=== PATIENT | male | born 1975 | race Caucasian/White ===

== ENCOUNTER 2019-07-22 14:57 | Emergency (ER) | payer MEDICAID, OTHER ==
[2019-07-22] MEDS ORDERED: IPRATROPIUM/ALBUTEROL 3 ML NEB INH STA (15:35)
--- NOTE | 2019-07-22 15:38 | ED Physician Documentation ---
History of Present Illness - Stated complaint Stated Complaint: FLU SX - Chief complaint Chief Complaint: Resp - History obtained from History obtained from: Patient - History of Present Illness Timing: How many weeks ago (2) Pain level max: 0 Pain level now: 0 - Additonal information Additional information: 43-year-old male states that he has had coughing and difficulty breathing for the past 2 weeks. Had a fever 2 weeks ago. Nothing makes it better or worse. He does occasionally use heroin. He smokes approximately a pack per day. No chest pain. No abdominal pain. He states he has had a decreased appetite as well. Review of Systems Constitutional: denies: Chills, Myalgias Nose: reports: Rhinorrhea / runny nose, Congestion Throat: reports: Sore throat Respiratory: reports: Cough GI: denies: Abdominal Pain, Vomiting, Diarrhea Skin: denies: Rash Musculoskeletal: denies: Neck pain, Back pain Neurologic: denies: Headache PD PAST MEDICAL HISTORY - Past Medical History Past Medical History: No - Past Surgical History Past Surgical History: No - Allergies Allergies/Adverse Reactions: Allergies Allergy/AdvReac Type Severity Reaction Status Date / Time Penicillins Allergy Rash Verified 07/22/19 15:00 - Living Situation Living Arrangement: reports: At home - Social History Does the pt smoke?: Yes Smoking Status: Current every day smoker Does the pt drink ETOH?: Yes Does the pt have substance abuse?: Yes Substance Use and Type: Heroin PD ED PE NORMAL - Vitals Vital signs reviewed: Yes - General General: Alert and oriented X 3, No acute distress, Other (thin male) - HEENT HEENT: PERRL, Moist mucous membranes, Other (Erythematous posterior oropharyngeal exam) - Neck Neck: Supple, no meningeal sign - Cardiac Cardiac: RRR, Strong equal pulses - Respiratory Respiratory: No respiratory distress, Clear bilaterally - Abdomen Abdomen: Soft, Non tender, Non distended - Derm Derm: Warm and dry, No rash - Neuro Neuro: Alert and oriented X 3 - Psych Psych: Normal mood, Normal affect Results - Vitals Vitals: Vital Signs - 24 hr 07/22/19 07/22/19 07/22/19 15:00 16:00 18:27 Temperature 36.7 C Heart Rate 109 H 87 92 Respiratory 14 12 18 Rate Blood Pressure 119/68 125/101 H O2 Saturation 92 96 Oxygen O2 Source Room air - Labs Labs: Laboratory Tests 07/22/19 07/22/19 07/22/19 15:34 15:34 16:39 WBC 17.7 H RBC 4.37 L Hgb 13.3 L Hct 38.3 L MCV 87.6 MCH 30.4 MCHC 34.7 RDW 14.6 Plt Count 543 H MPV 10.3 Neut # (Auto) Not Reportable Lymph # (Auto) Not Reportable [place] # (Auto) Not Reportable Eos # (Auto) Not Reportable Baso # (Auto) Not Reportable Absolute Nucleated RBC Not Reportable Total Counted 100 Band Neuts % (Manual) 4 Abnorm Lymph % (Manual) 0 Nucleated RBC % Not Reportable Neutrophils # (Manual) 15.6 H Lymphocytes # (Manual) 1.8 Monocytes # (Manual) 0.4 Eosinophils # (Manual) 0.0 Basophils # (Manual) 0.0 Differential Comment MANUAL DIFFERENTIAL Manual Slide Review Indicated WBC Morphology TOXIC GRANULATION Platelet Estimate INCREASED (>450,000) Platelet Morphology NORMAL APPEARANCE RBC Morph Micro Appear NORMAL APPEARANCE Sodium Potassium Chloride Carbon Dioxide Anion Gap BUN Creatinine Estimated GFR (MDRD) Glucose Lactic Acid Calcium Total Bilirubin AST ALT Alkaline Phosphatase Total Protein Albumin Globulin Albumin/Globulin Ratio Lipase Urine Color Urine Clarity Urine pH Ur Specific [place] Urine Protein Urine Glucose (UA) Urine Ketones Urine Occult Blood Urine Nitrite Urine Bilirubin Urine Urobilinogen Ur Leukocyte Esterase Ur Microscopic Review Urine Culture Comments Urine Opiates Screen Ur Oxycodone Screen Urine Methadone Screen Ur Propoxyphene Screen Ur Barbiturates Screen Ur Tricyclics Screen Ur Phencyclidine Scrn Ur Amphetamine Screen U Methamphetamines Scrn U Benzodiazepines Scrn Urine Cocaine Screen U Cannabinoids Screen Influenza A (Rapid) Negative Influenza B (Rapid) Negative Group A Strep Rapid Negative 07/22/19 07/22/19 07/22/19 16:39 16:39 18:11 WBC RBC Hgb Hct MCV MCH MCHC RDW Plt Count MPV Neut # (Auto) Lymph # (Auto) [place] # (Auto) Eos # (Auto) Baso # (Auto) Absolute Nucleated RBC Total Counted Band Neuts % (Manual) Abnorm Lymph % (Manual) Nucleated RBC % Neutrophils # (Manual) Lymphocytes # (Manual) Monocytes # (Manual) Eosinophils # (Manual) Basophils # (Manual) Differential Comment Manual Slide Review WBC Morphology Platelet Estimate Platelet Morphology RBC Morph Micro Appear Sodium 125 L Potassium 4.4 Chloride 86 L Carbon Dioxide 26 Anion Gap 13.0 BUN 18 Creatinine 0.7 Estimated GFR (MDRD) 124 Glucose 131 H Lactic Acid 1.5 Calcium 8.1 L Total Bilirubin 1.8 H AST 84 H ALT 74 H Alkaline Phosphatase 76 Total Protein 7.6 Albumin 2.6 L Globulin 5.0 H Albumin/Globulin Ratio 0.5 L Lipase 19 L Urine Color YELLOW Urine Clarity CLEAR Urine pH 7.0 Ur Specific [place] <=1.005 Urine Protein NEGATIVE Urine Glucose (UA) NEGATIVE Urine Ketones NEGATIVE Urine Occult Blood NEGATIVE Urine Nitrite NEGATIVE Urine Bilirubin NEGATIVE Urine Urobilinogen 0.2 (NORMAL) Ur Leukocyte Esterase NEGATIVE Ur Microscopic Review NOT INDICATED Urine Culture Comments NOT INDICATED Urine Opiates Screen POSITIVE H Ur Oxycodone Screen NEGATIVE Urine Methadone Screen NEGATIVE Ur Propoxyphene Screen NEGATIVE Ur Barbiturates Screen NEGATIVE Ur Tricyclics Screen NEGATIVE Ur Phencyclidine Scrn NEGATIVE Ur Amphetamine Screen NEGATIVE U Methamphetamines Scrn NEGATIVE U Benzodiazepines Scrn NEGATIVE Urine Cocaine Screen NEGATIVE U Cannabinoids Screen NEGATIVE Influenza A (Rapid) Influenza B (Rapid) Group A Strep Rapid - Rads (name of study) cxr Radiology: Prelim report reviewed, EMP read contemporaneously, See rad report (1. Hyperinflated lungs consistent with COPD. 2. Left infrahilar mass-like density measuring 3.5 cm craniocaudal with adjacent atelectasis. Question aspergillosis, other infection or malignancy. 3. Extensive right mid to lower lung airspace disease. 4. Potential right pleural effusion. 5. Recommend contrast enhanced chest CT to further assess. ) chest CT Radiology: Prelim report reviewed, EMP read contemporaneously, See rad report (1. Multifocal consolidation in the right lower lobe, right middle lobe and left upper lobe. Diffuse bronchial wall thickening with mucus plugging most pronounced in the right lower lobe and right middle lobe with tree-in-bud opacities in the left lower lobe and left lingula. Mediastinal and right hilar lymphadenopathy. Findings suggest multifocal bronchopneumonia. Recommend pulmonology consultation. 2. Background of mild emphysema. 3. There is a 2 x 3 cm low-attenuation nodule within the left thyroid gland. Recommend nonemergent thyroid ultrasound for further evaluation. 4. Absence of subcutaneous fat consistent with cachexia. 5. Splenomegaly with small splenic and gastric varices. 6. Thickening of the gastric antrum may be secondary to underdistention versus antral gastritis. ) PD MEDICAL DECISION MAKING - ED course Complexity details: reviewed results, re-evaluated patient, considered differential, d/w patient ED course: 43-year-old male with diffuse bronchopneumonia, multifocal consolidation. Significant mucus plugging with tree-in-bud opacities. Given IV Levaquin. Given IV fluids for the hyponatremia and dehydration. Blood cultures were drawn. We do not have pulmonary to consult in this hospital, contacted [facility] for potential transfer. Dr. Katie Rowe graciously accepts in transfer at 2019. COBRA forms completed. Patient will be transferred to [facility]. This document was made in part using voice recognition software. While efforts are made to proofread this document, sound alike and grammatical errors may occur. Departure - Departure Disposition: 02 Transfer Acute Care Hosp Clinical Impression: Bronchopneumonia, Hyponatremia Condition: Stable
[2019-07-22 15:59] LABS: RAPID STREP SCREEN Negative (Negative)
--- NOTE | 2019-07-22 16:19 | XRAY Report ---
Reason: cough Procedure Date: 07/22/2019 Accession Number: [id number] / [id number] Procedure: XR - Chest 2 View X-Ray CPT Code: 66421 Final Report FULL RESULT: EXAM: CHEST RADIOGRAPHY EXAM DATE: 07/22/2019 03:55 PM. CLINICAL HISTORY: Cough. Moved into old house a year ago and started coughing. Current smoker. COMPARISON: None. TECHNIQUE: 2 views. FINDINGS: Lungs/Pleura: Hyperinflated lungs with increased AP dimension on the lateral film. Left infrahilar masslike density measuring 3.5 cm craniocaudal with adjacent atelectasis. Extensive right mid to lower lung airspace disease. Potential right pleural effusion. Mediastinum: Heart and mediastinal contours are unremarkable. Other: None. IMPRESSION: 1. Hyperinflated lungs consistent with COPD. 2. Left infrahilar mass-like density measuring 3.5 cm craniocaudal with adjacent atelectasis. Question aspergillosis, other infection or malignancy. 3. Extensive right mid to lower lung airspace disease. 4. Potential right pleural effusion. 5. Recommend contrast enhanced chest CT to further assess. RADIA The call report notification system was initiated by Dr. Kashmir Linares at 04:10 PM on 07/22/2019.
[2019-07-22] MEDS ORDERED: IOVERSOL 320 100 ML VIAL IVP ONE ×2 (16:27→17:34)
[2019-07-22 16:49] LABS: BASOPHILS % (AUTO) 0.6 %; EOSINOPHILS % (AUTO) 0.5 %; HGB - HEMOGLOBIN 13.3 g/dL (14.0-18.0); LYMPHOCYTES % (AUTO) 8.4 %; MEAN CORPUSCULAR HEMOGLOBIN 30.4 pg (27.0-31.0); MEAN CORPUSCULAR HGB CONC 34.7 g/dL (32.0-36.0); MEAN CORPUSCULAR VOLUME 87.6 fL (80.0-94.0); MEAN PLATELET VOLUME 10.3 fL (7.4-11.4); MONOCYTES % (AUTO) 8.3 %; NEUTROPHILS % (AUTO) 80.7 %; PLT - PLATELET COUNT 543 10^3/uL (130-450); RED BLOOD COUNT 4.37 10^6/uL (4.70-6.10); RED CELL DISTRIBUTION WIDTH 14.6 % (12.0-15.0); WHITE BLOOD COUNT 17.7 x10^3/uL (4.8-10.8)
[2019-07-22 16:56] LABS: ABNORMAL LYMPHS % (MANUAL) 0 %
[2019-07-22 17:02] LABS: ALBUMIN 2.6 g/dL (3.2-5.5); ALBUMIN/GLOBULIN RATIO 0.5 (1.0-2.2); BILIRUBIN,TOTAL 1.8 mg/dL (0.2-1.0); CALCIUM 8.1 mg/dL (8.5-10.3); CREATININE 0.7 mg/dL (0.6-1.2); TOTAL PROTEIN 7.6 g/dL (6.7-8.2)
[2019-07-22 17:11] LABS: BAND NEUTROPHILS % (MANUAL) 4 %; LYMPHOCYTES # (MANUAL) 1.8 10^3/uL (1.5-3.5); LYMPHOCYTES % (MANUAL) 10 %; MONOCYTES # (MANUAL) 0.4 10^3/uL (0.0-1.0); PLATELET ESTIMATE, MANUAL INCREASED (>450,000) (NORMAL); PLATELET MORPHOLOGY NORMAL APPEARANCE (NORMAL); RBC MORPHOLOGY (MULTIPLE) NORMAL APPEARANCE (NORMAL)
[2019-07-22 17:12] LABS: DIFFERENTIAL COMMENT MANUAL DIFFERENTIAL
[2019-07-22] MEDS ORDERED: SODIUM CHLORIDE 0.9% 1,000 ML IV ONE ×2 (17:26)
--- NOTE | 2019-07-22 18:06 | CT Report ---
Reason: cough, possible mass Procedure Date: 07/22/2019 Accession Number: [id number] / [id number] Procedure: CT - CHEST W CPT Code: Final Report FULL RESULT: EXAM: CT CHEST EXAM DATE: 07/22/2019 05:31 PM. CLINICAL HISTORY: Cough, possible mass. COMPARISONS: CHEST 2 VIEW 07/22/2019 3:45 PM. TECHNIQUE: Routine helical CT imaging was performed through the chest. IV contrast: None. Reconstructions: Coronal and sagittal. In accordance with CT protocol optimization, one or more of the following dose reduction techniques were utilized for this exam: automated exposure control, adjustment of mA and/or KV based on patient size, or use of iterative reconstructive technique. FINDINGS: Imaged neck: There is a 2 x 3 cm low-attenuation nodule within the left thyroid gland. Central airways: Diffuse bronchial wall thickening with mucus plugging most pronounced in the right lower lobe and right middle lobe with tree-in-bud opacities in the left lower lobe and left lingula. Lung parenchyma: --Mild centrilobular emphysema. --Multifocal consolidation in the right lower lobe, right middle lobe and left upper lobe. There are also areas of groundglass opacity in the more apical portions of these lobes. Pleural effusion: None Pneumothorax: None Heart: Unremarkable Aorta: Unremarkable Pulmonary arteries: Unremarkable Adenopathy: Mediastinal and right hilar lymphadenopathy. Imaged abdomen: Contracted gallbladder. Splenomegaly. There also appeared to be small splenic and gastric varices. Thickening of the gastric antrum may be secondary to underdistention versus antral gastritis. Sidewalls: Absence of subcutaneous fat consistent with cachexia. Bones: No suspicious osseous lesions. IMPRESSION: 1. Multifocal consolidation in the right lower lobe, right middle lobe and left upper lobe. Diffuse bronchial wall thickening with mucus plugging most pronounced in the right lower lobe and right middle lobe with tree-in-bud opacities in the left lower lobe and left lingula. Mediastinal and right hilar lymphadenopathy. Findings suggest multifocal bronchopneumonia. Recommend Pulmonology consultation. 2. Background of mild emphysema. 3. There is a 2 x 3 cm low-attenuation nodule within the left thyroid gland. Recommend nonemergent thyroid ultrasound for further evaluation. 4. Absence of subcutaneous fat consistent with cachexia. 5. Splenomegaly with small splenic and gastric varices. 6. Thickening of the gastric antrum may be secondary to underdistention versus antral gastritis. RADIA
[2019-07-22] MEDS ORDERED: levoFLOXacin 750 MG/150 ML 750 MG/150 ML BAG IV ONE (18:15)
[2019-07-22 18:22] LABS: MUDS CUTOFF CONCENTRATIONS CUTOFF CONC BELOW:
[2019-07-22 18:28] LABS: BILIRUBIN,URINE NEGATIVE (NEGATIVE); GLUCOSE, URINE (UA) NEGATIVE (NEGATIVE); KETONES,URINE (UA) NEGATIVE (NEGATIVE); LEUKOCYTE ESTERASE, URINE NEGATIVE (NEGATIVE); NITRITE,URINE NEGATIVE (NEGATIVE); OCCULT BLOOD,URINE NEGATIVE (NEGATIVE); PROTEIN,URINE NEGATIVE (NEGATIVE); UROBILINOGEN,URINE 0.2 (NORMAL) E.U./dL (NORMAL)
[2019-07-22 18:30] LABS: CLARITY,URINE CLEAR (CLEAR)
[2019-07-22 18:42] LABS: AMPHETAMINE SCREEN,URINE NEGATIVE (NEGATIVE); BENZODIAZEPINES SCREEN, URINE NEGATIVE (NEGATIVE); COCAINE SCREEN URINE NEGATIVE (NEGATIVE); METHADONE SCREEN, URINE NEGATIVE (NEGATIVE); METHAMPHETAMINES SCREEN, URINE NEGATIVE (NEGATIVE); OPIATE SCREEN, URINE POSITIVE (NEGATIVE); OXYCODONE SCREEN, URINE NEGATIVE (NEGATIVE); PROPOXYPHENE SCREEN, URINE NEGATIVE (NEGATIVE); TRICYCLIC ANTIDEPRESSANT,URINE NEGATIVE (NEGATIVE)
[2019-07-22 22:07] VITALS: BP 103/62
[2019-07-23 11:33] LABS: HIV AG/AB 4TH GEN NON-REACTIVE (NON-REACTIVE)
== END 2019-07-22 22:15 | disposition short-term general hospital (02) ==
LOC: ED 14:57
DX: J18.0 Bronchopneumonia, unspecified organism (principal); E86.0 Dehydration; E87.1 Hypo-osmolality and hyponatremia; E04.1 Nontoxic single thyroid nodule; R16.1 Splenomegaly, not elsewhere classified; F17.200 Nicotine dependence, unspecified, uncomplicated
CPT/HCPCS: 36415; 71046; 71260; 80053; 80306; 81003; 83605; 83690; 85025; 87040; 87070; 87275; 87276; 87389; 87430; 94640; 96361; 96365; 96366; 99284; 99285; Q9967; 81001; 87086

== ENCOUNTER 2019-07-22 22:10 | Outpatient (CLI) | payer MEDICAID | END 2019-07-22 22:11 | disposition short-term general hospital (02) | LOC: EMS 22:10 | PROVIDERS: ATTEND Surgery | DX: J18.0 Bronchopneumonia, unspecified organism (principal); E87.1 Hypo-osmolality and hyponatremia | CPT/HCPCS: A0425; A0426 ==

== ENCOUNTER 2022-06-01 11:03 | Emergency (ER) | payer MEDICAID ==
--- NOTE | 2022-06-01 14:19 | ED Physician Documentation ---
History of Present Illness - Stated complaint Stated Complaint: RT LEG WEAKNESS - Chief complaint Chief Complaint: General - Additonal information Additional information: 46-year-old male presents to the emergency department for evaluation of acute right groin pain that began 1 week ago. This gentleman reports that he developed sudden midline back pain And shortly thereafter he had radiation of pain to his right groin. The back pain has abated but he has had persistent pain in the groin limiting his ability to walk and move. Patient does have a history of daily injection drug use. He has chronic appearing ulcerations on both his forearms that he reports are the site where he injects drugs. He has had no fevers. No nausea or vomiting. He denies any saddle anesthesia. No chest pain or shortness of air. History is obtained from the patient. He appears chronically disheveled though he reports he has stable housing Review of Systems Constitutional: denies: Fever, Chills Skin: reports: Lesions Musculoskeletal: reports: Back pain Neurologic: reports: Reviewed and negative Psychiatric: reports: Reviewed and negative PD PAST MEDICAL HISTORY - Past Surgical History Past Surgical History: No - Present Medications Home Medications: Ambulatory Orders Medication Instructions Recorded Confirmed Clindamycin [Cleocin] 450 mg PO TID 10 Days #90 cap 06/01/22 - Allergies Allergies/Adverse Reactions: Allergies Allergy/AdvReac Type Severity Reaction Status Date / Time Penicillins Allergy Rash Verified 06/01/22 11:24 - Social History Does the pt smoke?: Yes Smoking Status: Current every day smoker Does the pt drink ETOH?: Yes Does the pt have substance abuse?: Yes PD ED PE EXPANDED - General General: Alert, Disheveled, poorly kept - Cardiac Cardiac: Regular Rate, Radial strong equal, Pedal strong equal, Cap refill < 2 sec - Respiratory Respiratory: Clear to ausultation thania. No: Distress, Labored - Abdomen Abdomen: Normal Bowel sounds. No: Tender to palpation - Male Male : Normal lie/cremastaric, Other (Pain with internal and external rotation. No swelling or deformity. No lymphadenopathy.) - Back Back: Other (No tenderness elicited with palpation of the thoracic or lumbar spine. No crepitus or deformity.) - Derm Derm: Other (Chronic appearing ulcerations on bilateral upper extremities with exposed subcutaneous tissue. There is some hypertrophic scarring around the ulcerations they appear chronic.) - Neuro Neuro: Alert and Oriented X 3, CNII-XII intact - GCS Eye Opening: Spontaneous Motor: Obeys Commands Verbal: Oriented Total: 15 Results - Vitals Vitals: Vital Signs - 24 hr 06/01/22 06/01/22 06/01/22 11:19 11:24 13:24 Temperature 37.7 C 37.7 C Heart Rate 93 93 90 Respiratory 14 14 14 Rate Blood Pressure 117/63 117/63 116/60 O2 Saturation 95 95 96 06/01/22 06/01/22 06/01/22 15:00 17:00 19:00 Temperature Heart Rate 80 86 88 Respiratory 16 17 16 Rate Blood Pressure 120/76 125/80 135/89 H O2 Saturation 98 98 94 Oxygen O2 Source Room air - Labs Labs: Laboratory Tests 06/01/22 06/01/22 06/01/22 14:00 14:05 14:05 WBC 24.2 H RBC 4.33 L Hgb 11.8 L Hct 34.5 L MCV 79.7 L MCH 27.3 MCHC 34.2 RDW 14.6 Plt Count 698 H MPV 9.2 Neut # (Auto) 20.3 H Lymph # (Auto) 1.5 [place] # (Auto) 2.0 H Eos # (Auto) 0.1 Baso # (Auto) 0.1 Absolute Nucleated RBC 0.00 Nucleated RBC % 0.0 Manual Slide Review Indicated WBC Morphology 2+ TOXIC GRANULATION Sodium 124 L Potassium 4.2 Chloride 89 L Carbon Dioxide 25 Anion Gap 10.0 BUN 18 Creatinine 0.5 L Estimated GFR (MDRD) 181 Glucose 114 H Lactic Acid 0.7 Calcium 8.1 L Total Bilirubin 0.5 AST 24 ALT 26 Alkaline Phosphatase 96 Total Creatine Kinase C-Reactive Protein Total Protein 7.1 Albumin 2.2 L Globulin 4.9 H Albumin/Globulin Ratio 0.4 L Procalcitonin Urine Color Urine Clarity Urine pH Ur Specific [place] Urine Protein Urine Glucose (UA) Urine Ketones Urine Occult Blood Urine Nitrite Urine Bilirubin Urine Urobilinogen Ur Leukocyte Esterase Urine RBC Urine WBC Ur Squamous Epith Cells Urine Bacteria Urine Mucus Ur Microscopic Review Urine Culture Comments Urine Opiates Screen Ur Oxycodone Screen Urine Methadone Screen Ur Propoxyphene Screen Ur Barbiturates Screen Ur Tricyclics Screen Ur Phencyclidine Scrn Ur Amphetamine Screen U Methamphetamines Scrn U Benzodiazepines Scrn Urine Cocaine Screen U Cannabinoids Screen 06/01/22 06/01/22 06/01/22 14:05 14:05 14:05 WBC RBC Hgb Hct MCV MCH MCHC RDW Plt Count MPV Neut # (Auto) Lymph # (Auto) [place] # (Auto) Eos # (Auto) Baso # (Auto) Absolute Nucleated RBC Nucleated RBC % Manual Slide Review WBC Morphology Sodium Potassium Chloride Carbon Dioxide Anion Gap BUN Creatinine Estimated GFR (MDRD) Glucose Lactic Acid Calcium Total Bilirubin AST ALT Alkaline Phosphatase Total Creatine Kinase 17 L C-Reactive Protein 24.4 H Total Protein Albumin Globulin Albumin/Globulin Ratio Procalcitonin 1.43 H Urine Color Urine Clarity Urine pH Ur Specific [place] Urine Protein Urine Glucose (UA) Urine Ketones Urine Occult Blood Urine Nitrite Urine Bilirubin Urine Urobilinogen Ur Leukocyte Esterase Urine RBC Urine WBC Ur Squamous Epith Cells Urine Bacteria Urine Mucus Ur Microscopic Review Urine Culture Comments Urine Opiates Screen Ur Oxycodone Screen Urine Methadone Screen Ur Propoxyphene Screen Ur Barbiturates Screen Ur Tricyclics Screen Ur Phencyclidine Scrn Ur Amphetamine Screen U Methamphetamines Scrn U Benzodiazepines Scrn Urine Cocaine Screen U Cannabinoids Screen 06/01/22 06/01/22 16:00 16:04 WBC RBC Hgb Hct MCV MCH MCHC RDW Plt Count MPV Neut # (Auto) Lymph # (Auto) [place] # (Auto) Eos # (Auto) Baso # (Auto) Absolute Nucleated RBC Nucleated RBC % Manual Slide Review WBC Morphology Sodium Potassium Chloride Carbon Dioxide Anion Gap BUN Creatinine Estimated GFR (MDRD) Glucose Lactic Acid Calcium Total Bilirubin AST ALT Alkaline Phosphatase Total Creatine Kinase C-Reactive Protein Total Protein Albumin Globulin Albumin/Globulin Ratio Procalcitonin Urine Color DARK YELLOW Urine Clarity CLEAR Urine pH 7.0 Ur Specific [place] 1.015 Urine Protein TRACE Urine Glucose (UA) NEGATIVE Urine Ketones NEGATIVE Urine Occult Blood NEGATIVE Urine Nitrite NEGATIVE Urine Bilirubin NEGATIVE Urine Urobilinogen >=8.0 H Ur Leukocyte Esterase NEGATIVE Urine RBC 0-5 Urine WBC 0-3 Ur Squamous Epith Cells NONE SEEN Urine Bacteria None Seen Urine Mucus Few Strands Ur Microscopic Review Cancelled Urine Culture Comments NOT INDICATED Urine Opiates Screen POSITIVE H Ur Oxycodone Screen NEGATIVE Urine Methadone Screen NEGATIVE Ur Propoxyphene Screen NEGATIVE Ur Barbiturates Screen NEGATIVE Ur Tricyclics Screen NEGATIVE Ur Phencyclidine Scrn NEGATIVE Ur Amphetamine Screen NEGATIVE U Methamphetamines Scrn NEGATIVE U Benzodiazepines Scrn NEGATIVE Urine Cocaine Screen NEGATIVE U Cannabinoids Screen POSITIVE H - Rads (name of study) CT abd w/o Radiology: Final report received (Distal colonic and rectal obstipation. Chronic appearing lung disease at the bases raising the possibility of cystic fibrosis. No other acute abnormalities to be identified due to the lack of IV contrast) cxr Radiology: Final report received (Hazy opacity bilaterally as suspected. This could be due to pneumonia or the sequelae of prior pneumonia. Emphysematous change. CT of the chest could be considered for further evaluation) PD Medical Decision Making - ED course Complexity details: reviewed old records, reviewed results, re-evaluated patient, considered differential, d/w patient ED course: 46-year-old male presents emergency department for evaluation of 1 week right groin pain. He does have a history of daily injection drug use. He states that the pain started a week ago in his low back but that has fully gone away. He has no saddle anesthesia loss of bowel or bladder function. This gentleman has limited history here at [facility] and it appears that 2 years ago he was emergently transferred to [facility] with a pulmonary infection. The patient denies any fevers, nausea vomiting. No cough. The cause of the right groin pain was initially evaluated with a CT of the abdomen Which suggested an expansive soft tissue mass surrounding the left eig hth rib extending into the upper abdominal subcutaneous region. But no acute finding to suggest cause of the groin pain was identified. I subsequently got a X-ray of the chest which suggested bilateral hazy opacity questionable emphysematous change versus pneumonia. This patient was also initially worked up with a CBC that showed a significant leukocytosis of 24,000. No worrisome anemia. His electrolytes did not show any acute worrisome derangement. His lactate was not elevated and his Procalcitonin was mildly elevated at 1.4. His CRP was quite elevated at 24. He has chronic ulcerations of both his forearms at the site where he injects drugs daily. In order to complete the work-up to help determine a cause of his leukocytosis as well as the groin pain I had ordered a CT of the chest with contrast. I had also ordered MRI of the lumbar and hip and pelvis. However the patient did not feel that this work-up was necessary. He wanted to leave which was AGAINST MEDICAL ADVICE. I discussed with him that this evolving lung mass could be a cause for his weight loss and a sign of cancer. We also discussed the possibility that injection drug use can lead to epidural or joint space abscesses. However He still elected to leave. I did send a prescription for clindamycin to the pharmacy. It was made exquisitely clear to the patient that he could choose to return for further evaluation and treatment at any time. He was given crutches to aid in ambulation. Departure - Departure Disposition: Against Medical Advice Clinical Impression: Intravenous drug user, Right groin pain, Skin ulcer of upper arm with fat layer exposed, Mass of lung Leukocytosis Qualifiers: Leukocytosis type: unspecified Qualified Code(s): D72.829 - Elevated white blood cell count, unspecified Condition: Stable Record reviewed to determine appropriate education?: Yes Prescriptions: Clindamycin [Cleocin] 450 mg PO TID 10 Days #90 cap Comments: Bo benoit were seen today in the emergency department for pain in your right groin region for about 1 week. As we discussed at the bedside I am concerned that the cause of this pain could be related to your venous/injection drug use. Here in the emergency department we did note that you had a very elevated white blood cell count. The CT of your abdomen did not show an obvious cause for the right groin pain. However it does make note of a possible mass in your lung. In order to help determine the cause of your groin pain I had offered a CT of your chest as well as an MRI of your lumbar and right groin. However at this time you are declining any further care and are leaving AGAINST MEDICAL ADVICE. I am going to send a prescription for some antibiotics to the [facility] in [place] though admittedly I am uncertain where your infection is, or if you even have. I encourage you to stop using drugs and contact some the local detox facilities if you are able. The ulcers on both your arms will take months if not years to heal and there is no acute treatment needed today. If at any point you feel that your symptoms are worse you can return to this or any emergency department with no questions asked and I would encourage you to do so
[2022-06-01 14:31] LABS: BASOPHILS # (AUTO) 0.1 10^3/uL (0.0-0.1); BASOPHILS % (AUTO) 0.2 %; EOSINOPHILS # (AUTO) 0.1 10^3/uL (0.0-0.7); EOSINOPHILS % (AUTO) 0.5 %; HCT - HEMATOCRIT 34.5 % (42.0-52.0); HGB - HEMOGLOBIN 11.8 g/dL (14.0-18.0); LYMPHOCYTES # (AUTO) 1.5 10^3/uL (1.5-3.5); LYMPHOCYTES % (AUTO) 6.2 %; MEAN CORPUSCULAR HEMOGLOBIN 27.3 pg (27.0-31.0); MEAN CORPUSCULAR HGB CONC 34.2 g/dL (32.0-36.0); MEAN CORPUSCULAR VOLUME 79.7 fL (80.0-94.0); MEAN PLATELET VOLUME 9.2 fL (7.4-11.4); MONOCYTES % (AUTO) 8.2 %; NEUTROPHILS # (AUTO) 20.3 10^3/uL (1.5-6.6); NEUTROPHILS % (AUTO) 84.1 %; PLT - PLATELET COUNT 698 10^3/uL (130-450); RED BLOOD COUNT 4.33 10^6/uL (4.70-6.10); RED CELL DISTRIBUTION WIDTH 14.6 % (12.0-15.0); WHITE BLOOD COUNT 24.2 x10^3/uL (4.8-10.8)
[2022-06-01 14:36] LABS: SLIDE REVIEW? Indicated
[2022-06-01 14:42] LABS: ALBUMIN 2.2 g/dL (3.2-5.5); ALBUMIN/GLOBULIN RATIO 0.4 (1.0-2.2); BILIRUBIN,TOTAL 0.5 mg/dL (0.2-1.0); CALCIUM 8.1 mg/dL (8.5-10.3); CREATININE 0.5 mg/dL (0.6-1.2); POTASSIUM 4.2 mmol/L (3.5-5.0); TOTAL PROTEIN 7.1 g/dL (6.7-8.2)
[2022-06-01 14:49] LABS: WBC MORPHOLOGY (MULTIPLE) 2+ TOXIC GRANULATION (NORMAL)
--- NOTE | 2022-06-01 15:54 | CT Report ---
PROCEDURE: ABDOMEN/PELVIS WO INDICATIONS: Right groin/hip pain TECHNIQUE: Noncontrast 5 mm thick sections acquired from the diaphragms to the symphysis. 5 mm coronal and sagi ttal reformats were then performed. For radiation dose reduction, the following was used: automated exposure control, adjustment of mA and/or kV according to patient size. COMPARISON: None. FINDINGS: Image quality: Quite limited due to body habitus and lack of IV contrast. ABDOMEN: Lung bases: Lower lungs demonstrate scattered bronchiectasis and patchy alveolar opacity. There is an expansile soft tissue mass surrounding the left eighth rib, extending into the upper abdominal subcu taneous tissues. The heart size is normal. No hiatal hernia. Solid organs: Liver and spleen are normal in size. Gallbladder Pancreas is normal in contours. N o adrenal nodules in the unenhanced liver and spleen are within normal limits for size. Adrenal gland s and pancreas are not well seen. There are no calcifications in either kidney. No definite hydroneph rosis. Peritoneum and bowel: Increased quantity of solid stool in the distal colon and rectum. No definite s mall bowel obstruction. The appendix was not identified. No definite free intraperitoneal air or flui d. Nodes and vessels: Retroperitoneal structures are grossly within normal limits but adenopathy is not able to be discerned due to lack of soft tissue definition. Miscellaneous: No ventral hernias. PELVIS: Genitourinary: Bladder wall thickness is normal. Miscellaneous: No inguinal hernias or adenopathy. Bones: No suspicious bony lesions. Mild levoscoliosis. No vertebral body compression fractures. IMPRESSION: 1. Distal colonic and rectal obstipation. 2. Chronic appearing lung disease at the bases raising possibility of cystic fibrosis. 3. No other acute abnormalities able to be identified due to lack of IV contrast. Reviewed by: Aleah Salinas MD on 06/01/2022 3:53 PM PST Approved by: Aleah Salinas MD on 06/01/2022 3:53 PM PST Station ID: [id number]
[2022-06-01] MEDS ORDERED: LIDOCAINE-MPF 2% 5 ML VIAL ONE (16:04)
--- NOTE | 2022-06-01 16:14 | CONSULTATION NOTE ---
Consultation Report: Called for difficult IV access. 20G 2.25cm US angiocath under US guidance attempt x1 right cephalic tiffanie above AC, lido 2% skin wheal, dressed with tegaderm and tape, flushes and draws easily
[2022-06-01] MEDS ORDERED: VANCOMYCIN INJ 1.5 GM in SODIUM CHLORIDE 0.9% 500 ML IV STA (16:18)
[2022-06-01] MEDS ORDERED: CEFEPIME 2 GM in SODIUM CHLORIDE 0.9% MINIBAG 100 ML IV STA (16:18)
[2022-06-01 16:20] LABS: MUDS CUTOFF CONCENTRATIONS CUTOFF CONC BELOW:
[2022-06-01] MEDS ORDERED: SODIUM CHLORIDE 0.9% 1,000 ML IV STA (16:21)
[2022-06-01] MEDS ORDERED: VANCOMYCIN INJ 1 GM, VANCOMYCIN INJ 500 MG in SODIUM CHLORIDE 0.9% 500 ML IV STA (16:24)
[2022-06-01 16:27] LABS: BILIRUBIN,URINE NEGATIVE (NEGATIVE); GLUCOSE, URINE (UA) NEGATIVE (NEGATIVE); KETONES,URINE (UA) NEGATIVE (NEGATIVE); LEUKOCYTE ESTERASE, URINE NEGATIVE (NEGATIVE); NITRITE,URINE NEGATIVE (NEGATIVE); OCCULT BLOOD,URINE NEGATIVE (NEGATIVE); PROTEIN,URINE TRACE mg/dL (NEGATIVE); UROBILINOGEN,URINE >=8.0 E.U./dL (NORMAL)
[2022-06-01 16:35] LABS: CLARITY,URINE CLEAR (CLEAR)
[2022-06-01 16:36] LABS: AMPHETAMINE SCREEN,URINE NEGATIVE (NEGATIVE); BARBITURATE SCREEN,UR NEGATIVE (NEGATIVE); BENZODIAZEPINES SCREEN, URINE NEGATIVE (NEGATIVE); COCAINE SCREEN URINE NEGATIVE (NEGATIVE); METHADONE SCREEN, URINE NEGATIVE (NEGATIVE); METHAMPHETAMINES SCREEN, URINE NEGATIVE (NEGATIVE); OPIATE SCREEN, URINE POSITIVE (NEGATIVE); OXYCODONE SCREEN, URINE NEGATIVE (NEGATIVE); PROPOXYPHENE SCREEN, URINE NEGATIVE (NEGATIVE); THC CANNABINOID SCREEN, URINE POSITIVE (NEGATIVE); TRICYCLIC ANTIDEPRESSANT,URINE NEGATIVE (NEGATIVE)
[2022-06-01 16:46] LABS: BACTERIA,URINE None Seen /HPF (None Seen); MUCUS,URINE Few Strands; RBC,URINE 0-5 /HPF (0-5); SQUAMOUS EPITHELIAL CELL,UR NONE SEEN (<= Few); WBC,URINE 0-3 /HPF (0-3)
--- NOTE | 2022-06-01 16:51 | XRAY Report ---
PROCEDURE: Chest 1 View X-Ray INDICATIONS: chest pain TECHNIQUE: One view of the chest was acquired. COMPARISON: Lung bases on same day CT abdomen and pelvis. CT chest 07/22/2019. CXR 07/22/2019. FINDINGS: Surgical changes and devices: None. Lungs and pleura: No pleural effusions or pneumothorax. Emphysematous change. Hazy opacity bilateral ly. Mediastinum: Mediastinal contours appear normal. Heart size is normal. Bones and chest wall: No suspicious bony lesions. Overlying soft tissues appear unremarkable. IMPRESSION: Hazy opacity bilaterally is suspected. This could be due to pneumonia or the sequelae of prior pneumo adela. Emphysematous change. CT of the chest could be considered for further evaluation. Reviewed by: Mane Troy MD on 06/01/2022 4:49 PM [facility] Approved by: Mane Troy MD on 06/01/2022 4:49 PM [facility] Station ID: [id number]
[2022-06-01] MEDS ORDERED: iohexoL-300 100 ML VIAL ONE (18:06)
[2022-06-01 19:13] VITALS: BP 135/89
--- NOTE | 2022-06-02 11:47 | ED Physician Documentation ---
ED Addendum - Addendum Addendum: 06/02/22 11:45 Patient's blood cultures from ED visit yesterday have resulted positive for staph aureus. In brief this is a daily injection drug user that presented for acute right groin pain over the last week. He was noted to have fairly elevated leukocytosis with a white count of 26,000. CT imaging of the belly indicated he likely had a mass in his left chest. I had ordered a CT of the chest as well as MRI imaging of the lumbar and hip however the patient chose to leave AGAINST MEDICAL ADVICE. These blood cultures could certainly be a contamination as it was very difficult to obtain laboratory imaging yesterday but with a history of injection drug use, significant leukocytosis as well as the pain in his groin there is significant concern for septicemia as well as joint infection or even epidural abscess. The patient was discharged with a prescription of clindamycin yesterday. I did speak on the phone with the patient today and he reports that he is feeling better and his groin is feeling better. However I discussed with him my concern that he could be developing endocarditis if he does not fact have septicemia and we still do not know the source of his groin pain. He was encouraged to return immediately to the ER for repeat evaluation. He stated he would
== END 2022-06-01 20:07 | disposition left against medical advice (07) ==
LOC: ED 11:03
DX: R10.31 Right lower quadrant pain (principal); L98.492 Non-pressure chronic ulcer of skin of other sites with fat layer exposed; D72.829 Elevated white blood cell count, unspecified; R91.8 Other nonspecific abnormal finding of lung field; Z53.29 Procedure and treatment not carried out because of patient's decision for other reasons
CPT/HCPCS: 36415; 71045; 74176; 80053; 80306; 81001; 82550; 83605; 84145; 85025; 86140; 87040; 87150; 87181; 96365; 96366; 96367; 99283; 99284; J3370; 81003; 87086